=== PATIENT | female | born 1980 | race Native Hawaiian/Other Pacific Islander ===

== ENCOUNTER 2020-04-05 14:12 | Outpatient (CLI) | payer OTHER ==
[2020-04-05 14:42] LABS: PLATELET COUNT 359 K/uL (152-353)
[2020-04-05 14:55] LABS: POTASSIUM 4.5 mmol/L (3.6-5.2)
== END 2020-04-05 22:03 | disposition home or self-care (01) ==
LOC: LAB 14:12
PROVIDERS: Nurse Practitioner Family
DX: E66.09 Other obesity due to excess calories (principal); Z68.32 Body mass index [BMI] 32.0-32.9, adult; R42 Dizziness and giddiness; Z13.0 Encounter for screening for diseases of the blood and blood-forming organs and certain disorders involving the immune mechanism; Z13.220 Encounter for screening for lipoid disorders; Z13.29 Encounter for screening for other suspected endocrine disorder
CPT/HCPCS: 80053; 80061; 82306; 82607; 84443; 85027

== ENCOUNTER 2020-06-21 15:57 | Outpatient (CLI) | payer OTHER ==
[2020-06-21 17:49] LABS: PLATELET COUNT 347 K/uL (152-353)
== END 2020-06-21 19:54 | disposition home or self-care (01) ==
LOC: LAB 15:57
PROVIDERS: ATTEND Nurse Practitioner Family
DX: R53.82 Chronic fatigue, unspecified (principal); R53.81 Other malaise; R42 Dizziness and giddiness
CPT/HCPCS: 82552; 83036; 85027

== ENCOUNTER 2021-02-13 15:12 | Outpatient (CLI) | payer OTHER | END 2021-02-13 19:20 | disposition home or self-care (01) | LOC: LAB 15:12 | PROVIDERS: ATTEND Nurse Practitioner Family | DX: L02.415 Cutaneous abscess of right lower limb (principal) | CPT/HCPCS: 87070; 87077; 87185; 87186; 87205 ==

== ENCOUNTER 2021-03-23 15:31 | Outpatient (CLI) | payer OTHER ==
[2021-03-24 07:20] LABS: LDL CHOLESTEROL 46.7 mg/dL (0-99*)
== END 2021-03-23 23:15 | disposition home or self-care (01) ==
LOC: LAB 15:31
PROVIDERS: ATTEND Nurse Practitioner Family
DX: F41.9 Anxiety disorder, unspecified (principal); R00.0 Tachycardia, unspecified; R63.5 Abnormal weight gain; R53.82 Chronic fatigue, unspecified
CPT/HCPCS: 80053; 80061; 82306; 82607; 82670; 83036; 84403; 84439; 84443; 84481